=== PATIENT | female | born 1940 | race Caucasian/White ===

== ENCOUNTER → 2021-07-05 | Outpatient (CLI) | payer MEDICARE, BC ==
[~2021-07-05] MED LIST: ALENDRONATE SOD70 MG PO; ANTIVERT 25MG T25 MG PO; LANSOPRAZOLE30 MG PO; SYNTHROID100 MCG PO
== END ==
LOC: RT 13:58
DX: R53.83 Other fatigue (principal); R94.31 Abnormal electrocardiogram [ECG] [EKG]
CPT/HCPCS: 93005